=== PATIENT | female | born 1950 | race Caucasian/White ===

== ENCOUNTER 2019-04-11 12:07 | Outpatient (REF) | payer MEDICARE, OTHER, SELFPAY ==
[2019-04-11 21:12] LABS: Cholesterol 186 mg/dL (50-200); Glucose 82 mg/dL (70-100); HDL Cholesterol 49 mg/dL (40-60); LDL CHOLESTEROL 113 mg/dL (<100); Triglyceride 96 mg/dL (30-150)
== END 2019-04-11 12:27 ==
LOC: NCHCN 12:07
PROVIDERS: PCP Family Medicine; Visit Provider Family Medicine
DX: E78.5 Hyperlipidemia, unspecified (principal); E66.9 Obesity, unspecified
CPT/HCPCS: 80061; 82947; 83721

== ENCOUNTER 2021-04-15 18:33 | Outpatient (REF) | payer MEDICARE, OTHER, SELFPAY ==
--- NOTE | 2021-04-15 16:00 | SKI_PTH ---
PATIENT: Manda Harmon LOC: JOB U#:[id number] AGE/SX: 70/F ROOM: RE04/15/[address]: Lissett Cisneros V : 1950 BED: DIS: 04/15/2021 SPEC #: [id number] RECD: 04/15/21 18:38 STATUS: ANEL SNOW #: [id number] IVONE: 04/15/21 16:[address]: Lissett Cisneros V DEPT: Surgical Specimen RECD BY: Luana Alcantara Tissues: 1 - SKIN BIOPSY(SHAVE/PUNCH) Procedures: SKIN LEVEL 4 Comments: [id number]
== END 2021-04-15 18:34 | disposition home or self-care (01) ==
LOC: LBN 18:33
PROVIDERS: PCP Family Medicine; Visit Provider Family Medicine
DX: N64.89 Other specified disorders of breast (principal); B07.8 Other viral warts
CPT/HCPCS: 88305

== ENCOUNTER 2022-08-09 13:19 | Outpatient (REF) | payer MEDICARE, OTHER, SELFPAY ==
[2022-08-09 15:47] LABS: Hemoglobin A1C 5.7 % (<5.7)
[2022-08-09 15:48] LABS: Calculated LDL 121 mg/dL (<100); Cholesterol 197 mg/dL (<200); HDL Cholesterol 58 mg/dL (40-60); Triglyceride 92 mg/dL (<150)
== END 2022-08-09 13:20 | disposition home or self-care (01) ==
LOC: NCHCN 13:19
PROVIDERS: PCP Family Medicine; Visit Provider Family Medicine
DX: Z00.00 Encounter for general adult medical examination without abnormal findings (principal)
CPT/HCPCS: 80061; 83036

== ENCOUNTER 2023-02-07 15:14 | Outpatient (REF) | payer MEDICARE, SELFPAY ==
[2023-02-07 17:22] LABS: HCT 40.3 % (36.0-46.0); HGB 13.2 g/dL (11.2-15.7)
[2023-02-07 17:47] LABS: Hemoglobin A1C 5.6 % (<5.7)
[2023-02-07 17:56] LABS: Calculated LDL 135 mg/dL (<100); Cholesterol 210 mg/dL (<200); HDL Cholesterol 61 mg/dL (40-60); Triglyceride 70 mg/dL (<150)
== END 2023-02-07 15:15 | disposition home or self-care (01) ==
LOC: NCHCN 15:14
PROVIDERS: PCP Family Medicine; Visit Provider Family Medicine
DX: E78.5 Hyperlipidemia, unspecified (principal); R79.89 Other specified abnormal findings of blood chemistry; E66.9 Obesity, unspecified
CPT/HCPCS: 80061; 83036; 85014; 85018

== ENCOUNTER 2023-05-03 10:07 | Outpatient (REF) | payer MEDICARE, SELFPAY ==
[2023-05-03 16:40] LABS: AST 22 U/L (15-37); Calculated LDL 98 mg/dL (<100); Cholesterol 174 mg/dL (<200); HDL Cholesterol 62 mg/dL (40-60); Triglyceride 73 mg/dL (<150)
[2023-05-03 17:29] LABS: Creatine Kinase 53 U/L (26-192)
== END 2023-05-03 10:08 | disposition home or self-care (01) ==
LOC: NCHCN 10:07
PROVIDERS: PCP Family Medicine; Visit Provider Family Medicine
DX: E78.5 Hyperlipidemia, unspecified (principal)
CPT/HCPCS: 80061; 82550; 84450